=== PATIENT | male | born 1980 | race Caucasian/White ===

== ENCOUNTER 2021-02-15 05:22 | Inpatient (IN) | payer BC ==
[~2021-02-15] VITALS: Ht 180.3 cm; Wt 66.3 kg
[~2021-02-15 05:22] MED LIST: AUGMENTIN 875875 MG PO; NAPROSYN500 MG PO; TYLENOL325 M1 PO
[2021-02-15 05:33] VITALS: BP 109/43
[2021-02-15 06:30] LABS: ALBUMIN 2.6 gm/dl (3.1-4.5); ALKALINE PHOSPHATASE 58 U/L (45-117); BUN 9 mg/dl (7-24); CHLORIDE 103 mmol/L (98-107); CREATININE 0.71 mg/dL (0.70-1.30); POTASSIUM 3.5 mmol/L (3.5-5.1); SGOT/AST 53 IU/L (3-35); SGPT/ALT 49 U/L (12-78); SODIUM 134 mmol/L (136-145)
[2021-02-15 06:36] LABS: HEMATOCRIT 38.4 % (42.0-52.0); MEAN CELL VOLUME 93.9 fl (80.0-94.0); MEAN CORPUSCULAR HGB 31.5 pg (27.0-31.0); MEAN CORPUSCULAR HGB CONC 33.6 g/dl (33.0-37.0); MEAN PLATELET VOLUME 11.5 fl (9.6-12.3); PLATELET COUNT AUTOMATED 175 10*3/uL (130-400); RED BLOOD COUNT 4.09 10*6/uL (4.50-5.90); RED CELL DISTRI WIDTH 13.3 % (0-14.5); WHITE BLOOD COUNT 4.2 10*3/uL (4.8-10.8)
[2021-02-15 06:49] LABS: PLATELET SUFFICIENCY NORMAL (NORMAL); TOTAL CELLS COUNTED 100 #CELLS
[2021-02-15 08:53] LABS: CPK 449 U/L (39-308); LDH 411 U/L (87-241)
[2021-02-15] MEDS ORDERED: LEVOTHYROXINE100 MC2 PO (08:57)
[2021-02-15 10:33] LABS: ABG BASE EXCESS 1.5 mmol/L (-2.0-2.0); ARTERIAL BLOOD GAS PH 7.441 (7.35-7.45); ARTERIAL BLOOD GAS PO2 99.2 (80-90)
[2021-02-15 16:02] VITALS: BP 114/74
[2021-02-15 17:30] VITALS: BP 126/72; BP 127/72
[2021-02-15 20:00] VITALS: BP 112/60
[2021-02-16] VITALS: BP 118/64
[2021-02-16 00:37] LABS: ABG BASE EXCESS 0.1 mmol/L (-2.0-2.0); ARTERIAL BLOOD GAS PH 7.441 (7.35-7.45); ARTERIAL BLOOD GAS PO2 117.9 (80-90)
[2021-02-16 07:05] LABS: BASO % 0.2 % (0.0-1.0); HEMATOCRIT 40.8 % (42.0-52.0); LYMPH # 0.8 10*3/uL (1.3-4.4); LYMPH % 14.2 % (27.0-41.0); MEAN CELL VOLUME 94.4 fl (80.0-94.0); MEAN CORPUSCULAR HGB CONC 32.8 g/dl (33.0-37.0); MONO # 0.2 10*3/uL (0.1-1.0); NEUT # 4.3 10*3/uL (2.3-7.9); NEUT % 81.8 % (47.0-73.0); PLATELET COUNT AUTOMATED 180 10*3/uL (130-400); RED BLOOD COUNT 4.32 10*6/uL (4.50-5.90); WHITE BLOOD COUNT 5.3 10*3/uL (4.8-10.8)
[2021-02-16 07:07] LABS: ALBUMIN 2.5 gm/dl (3.1-4.5); BUN 11 mg/dl (7-24); CHLORIDE 104 mmol/L (98-107); POTASSIUM 3.4 mmol/L (3.5-5.1); SODIUM 137 mmol/L (136-145)
[2021-02-16 07:18] LABS: ALKALINE PHOSPHATASE 55 U/L (45-117); CHOLESTEROL 84 mg/dL (<200); LDH 413 U/L (87-241); LDL CHOLESTEROL 34 mg/dL (9-159); SGOT/AST 36 IU/L (3-35); SGPT/ALT 42 U/L (12-78); TOTAL PROTEIN 6.9 gm/dL (6.4-8.2); TRIGLYCERIDES 77 mg/dl (<150)
[2021-02-16 07:24] LABS: CPK 308 U/L (39-308)
[2021-02-16 07:25] LABS: VITAMIN D, 25-HYDROXY 40.7 ng/mL (30-100)
[2021-02-16 08:00] VITALS: BP 100/56
[2021-02-16 12:00] VITALS: BP 114/93
[2021-02-16 16:00] VITALS: BP 125/69
[2021-02-16 20:00] VITALS: BP 121/71
[2021-02-17] VITALS: BP 108/51
[2021-02-17 07:56] LABS: ALBUMIN 2.5 gm/dl (3.1-4.5); BUN 12 mg/dl (7-24); CHLORIDE 108 mmol/L (98-107); CREATININE 0.64 mg/dL (0.70-1.30); LDH 444 U/L (87-241); POTASSIUM 3.7 mmol/L (3.5-5.1); SGOT/AST 30 IU/L (3-35); SGPT/ALT 41 U/L (12-78); SODIUM 141 mmol/L (136-145); TOTAL PROTEIN 6.9 gm/dL (6.4-8.2)
[2021-02-17 07:57] LABS: ALKALINE PHOSPHATASE 58 U/L (45-117)
[2021-02-17 07:58] LABS: HEMATOCRIT 39.6 % (42.0-52.0); MEAN CELL VOLUME 93.8 fl (80.0-94.0); MEAN CORPUSCULAR HGB 31.3 pg (27.0-31.0); MEAN CORPUSCULAR HGB CONC 33.3 g/dl (33.0-37.0); MEAN PLATELET VOLUME 11.8 fl (9.6-12.3); PLATELET COUNT AUTOMATED 223 10*3/uL (130-400); RED BLOOD COUNT 4.22 10*6/uL (4.50-5.90); RED CELL DISTRI WIDTH 13.1 % (0-14.5); WHITE BLOOD COUNT 5.1 10*3/uL (4.8-10.8)
[2021-02-17 07:59] LABS: CPK 170 U/L (39-308)
[2021-02-17 08:00] VITALS: BP 112/66
[2021-02-17 08:25] LABS: BASOPHILS 1 % (0-1); PLATELET SUFFICIENCY NORMAL (NORMAL); TOTAL CELLS COUNTED 100 #CELLS
[2021-02-17 12:00] VITALS: BP 98/52
[2021-02-17 16:00] VITALS: BP 113/63
[2021-02-18] VITALS: BP 111/60
[2021-02-18 07:30] LABS: HEMATOCRIT 41.5 % (42.0-52.0); MEAN CELL VOLUME 93.9 fl (80.0-94.0); MEAN CORPUSCULAR HGB 31.4 pg (27.0-31.0); MEAN CORPUSCULAR HGB CONC 33.5 g/dl (33.0-37.0); MEAN PLATELET VOLUME 11.5 fl (9.6-12.3); PLATELET COUNT AUTOMATED 248 10*3/uL (130-400); RED BLOOD COUNT 4.42 10*6/uL (4.50-5.90); RED CELL DISTRI WIDTH 13.1 % (0-14.5); WHITE BLOOD COUNT 6.3 10*3/uL (4.8-10.8)
[2021-02-18 07:49] LABS: ALBUMIN 2.7 gm/dl (3.1-4.5); BUN 11 mg/dl (7-24); CHLORIDE 107 mmol/L (98-107); CREATININE 0.55 mg/dL (0.70-1.30); LDH 416 U/L (87-241); POTASSIUM 3.7 mmol/L (3.5-5.1); SGOT/AST 31 IU/L (3-35); SGPT/ALT 43 U/L (12-78); SODIUM 140 mmol/L (136-145); TOTAL PROTEIN 7.3 gm/dL (6.4-8.2)
[2021-02-18 07:51] LABS: ALKALINE PHOSPHATASE 62 U/L (45-117); CPK 134 U/L (39-308)
[2021-02-18 08:00] VITALS: BP 97/46
[2021-02-18 08:31] LABS: PLATELET SUFFICIENCY NORMAL (NORMAL); TOTAL CELLS COUNTED 100 #CELLS
[2021-02-18 12:00] VITALS: BP 123/51
[2021-02-18 16:00] VITALS: BP 127/74
[2021-02-18 20:00] VITALS: BP 140/75
[2021-02-19] VITALS: BP 124/65
[2021-02-19 06:49] LABS: MEAN CELL VOLUME 93.8 fl (80.0-94.0); MEAN CORPUSCULAR HGB 31.4 pg (27.0-31.0); MEAN CORPUSCULAR HGB CONC 33.4 g/dl (33.0-37.0); MEAN PLATELET VOLUME 11.3 fl (9.6-12.3); PLATELET COUNT AUTOMATED 245 10*3/uL (130-400); RED BLOOD COUNT 4.37 10*6/uL (4.50-5.90); RED CELL DISTRI WIDTH 13.2 % (0-14.5); WHITE BLOOD COUNT 8.5 10*3/uL (4.8-10.8)
[2021-02-19 07:19] LABS: ALBUMIN 2.6 gm/dl (3.1-4.5); BUN 10 mg/dl (7-24); CHLORIDE 106 mmol/L (98-107); CREATININE 0.48 mg/dL (0.70-1.30); POTASSIUM 3.6 mmol/L (3.5-5.1); SGOT/AST 22 IU/L (3-35); SGPT/ALT 43 U/L (12-78); SODIUM 139 mmol/L (136-145); TOTAL PROTEIN 7.2 gm/dL (6.4-8.2)
[2021-02-19 07:21] LABS: ALKALINE PHOSPHATASE 66 U/L (45-117)
[2021-02-19 07:35] LABS: CPK 82 U/L (39-308)
[2021-02-19 07:55] LABS: PLASMA CELL 1 % (0-0); PLATELET SUFFICIENCY NORMAL (NORMAL); TOTAL CELLS COUNTED 100 #CELLS
[2021-02-19 08:00] VITALS: BP 122/57
[2021-02-19] MEDS ORDERED: DECADRON4 MG PO (11:30)
== END 2021-02-19 13:39 | disposition home or self-care (01) | DRG 871 ==
LOC: ED 05:22 → 4E 06:50 → EDHOLD 06:50 → 4E 17:14
PROVIDERS: Family Medicine; Internal Medicine; Registered Nurse; ADMIT Internal Medicine; ATTEND Internal Medicine
PROC: 5A0935A Assistance with Respiratory Ventilation, Less than 24 Consecutive Hours, High Flow/Velocity Cannula (ICD-10-PCS; 2021-02-15)
PROC: 5A09357 Assistance with Respiratory Ventilation, Less than 24 Consecutive Hours, Continuous Positive Airway Pressure (ICD-10-PCS; 2021-02-15)
PROC: XW033E5 Introduction of Remdesivir Anti-infective into Peripheral Vein, Percutaneous Approach, New Technology Group 5 (ICD-10-PCS; principal; 2021-02-16)
PROC: 05HC33Z Insertion of Infusion Device into Left Basilic Vein, Percutaneous Approach (ICD-10-PCS; 2021-02-16)
PROC: 5A0935A Assistance with Respiratory Ventilation, Less than 24 Consecutive Hours, High Flow/Velocity Cannula (ICD-10-PCS; 2021-02-17)
PROC: 5A09357 Assistance with Respiratory Ventilation, Less than 24 Consecutive Hours, Continuous Positive Airway Pressure (ICD-10-PCS; 2021-02-17)
PROC: 5A0935A Assistance with Respiratory Ventilation, Less than 24 Consecutive Hours, High Flow/Velocity Cannula (ICD-10-PCS; 2021-02-18)
PROC: 5A09357 Assistance with Respiratory Ventilation, Less than 24 Consecutive Hours, Continuous Positive Airway Pressure (ICD-10-PCS; 2021-02-18)
PROC: 5A09357 Assistance with Respiratory Ventilation, Less than 24 Consecutive Hours, Continuous Positive Airway Pressure (ICD-10-PCS; 2021-02-19)
DX: A41.89 Other specified sepsis (principal); U07.1 COVID-19; J12.82 Pneumonia due to coronavirus disease 2019; J96.01 Acute respiratory failure with hypoxia; E43 Unspecified severe protein-calorie malnutrition; Z68.43 Body mass index [BMI] 50.0-59.9, adult; R65.20 Severe sepsis without septic shock; R73.03 Prediabetes; E03.9 Hypothyroidism, unspecified; R74.01 Elevation of levels of liver transaminase levels; E87.5 Hyperkalemia; E66.01 Morbid (severe) obesity due to excess calories; R73.9 Hyperglycemia, unspecified

== ENCOUNTER 2023-06-25 04:06 | Emergency (ER) | payer OTHER ==
[~2023-06-25 04:06] MED LIST changes: +DECADRON4 MG PO; +LEVOTHYROXINE100 MC2 PO
[2023-06-25] MEDS ORDERED: MELOXICAM15 MG PO (05:44)
== END 2023-06-25 05:50 | disposition home or self-care (01) ==
LOC: ED 04:06
DX: S83.91XA Sprain of unspecified site of right knee, initial encounter (principal); W00.0XXA Fall on same level due to ice and snow, initial encounter; Y93.89 Activity, other specified; Y92.89 Other specified places as the place of occurrence of the external cause; Y99.8 Other external cause status